=== PATIENT | male | born 1945 | race Caucasian/White ===

== ENCOUNTER 2018-11-05 05:26 | Inpatient (IN) | payer MEDICARE ==
[~2018-11-05] VITALS: Ht 170.2 cm; Wt 88.0 kg
[~2018-11-05 05:26] MED LIST: ASPI81EC PO; IBUP800 PO; MULVITMINF PO
[2018-11-05 05:58] LABS: PCO2 Arterial 27.2 mmHg (35-45); PO2 Arterial 58.7 mmHg (80-100); pH Blood Arterial 7.42 (7.35-7.45)
[2018-11-05 06:02] LABS: BASOPHILS ABSOLUTE AUTO 0.08 K/mm3 (0.00-0.23); BASOPHILS PERCENT AUTO 1 % (0-2); EOSINOPHILS PERCENT AUTO 2 % (0-6); Hematocrit 50.2 % (37.0-53.0); Hemoglobin 16.4 g/dL (13.5-17.5); IMMATURE GRAN ABSOLUTE AUTO 0.11 K/mm3 (0.00-0.10); IMMATURE GRAN PERCENT AUTO 1 % (0-1); LYMPHOCYTES ABSOLUTE AUTO 3.69 K/mm3 (0.84-5.20); LYMPHOCYTES PERCENT AUTO 22 % (21-46); MONOCYTES ABSOLUTE AUTO 0.89 K/mm3 (0.16-1.47); MONOCYTES PERCENT AUTO 5 % (4-13); Mean Corpuscular HGB 31.3 pg (26.0-34.0); Mean Corpuscular HGB Conc 32.7 g/dL (31.5-36.5); Mean Corpuscular Volume 96 fL (80-100); Mean Platelet Volume 11.4 fL (9.1-12.4); NEUTROPHILS ABSOLUTE AUTO 12.12 K/mm3 (1.96-9.15); NEUTROPHILS PERCENT AUTO 71 % (41-73); Platelet Count 162 K/mm3 (150-400); RDW Coefficient Variation 12.6 % (11.7-14.2); RDW Standard Deviation 44.6 fL (35.1-46.3); Red Blood Cell Count 5.24 M/mm3 (4.30-5.90); White Blood Cell Count 17.19 K/mm3 (4.00-11.30)
[2018-11-05 06:20] LABS: Influenza A Negative (NEGATIVE); Influenza B Negative (NEGATIVE)
[2018-11-05 06:22] LABS: Troponin I 0.196 ng/mL (0.000-0.040)
[2018-11-05 06:37] LABS: Albumin, Blood 3.6 g/dL (3.4-5.0); Albumin/Globulin Ratio 0.8 (0.8-1.8); Bilirubin, Total 0.7 mg/dL (0.1-1.0); Bun/Creatinine Ratio 12.7 (12.0-20.0); Calcium, Blood 8.7 mg/dL (8.5-10.1); Creatinine, Blood 1.5 mg/dL (0.60-1.20); Globulin, Blood 4.4 g/dL (2.2-4.0)
[2018-11-05 09:05] LABS: Mean Platelet Volume 11.6 fL (9.1-12.4); Platelet Count 170 K/mm3 (150-400)
[2018-11-05 09:22] LABS: International Normalized Ratio 1.04
[2018-11-05] MEDS ORDERED: Aspir 8181 MG PO (10:42)
[2018-11-05] MEDS ORDERED: Multivitamin1 EAC1 PO (10:43)
--- NOTE | 2018-11-05 11:37 | NUR ---
Stat Echocardiogram performed. Dr. Sampson called for stat overread.
--- NOTE | 2018-11-05 11:48 | NUR ---
ARRIVAL TO ICU 1010 - PT ARRIVES FROM ED TO ICU AT THIS TIME. DENIES PAIN. SOB WITH EXERTION. PT CURRENTLY WEARING 10-12 LITERS NRB MASK, SPO2 95%. AFTER ARRIVAL, O2 CHANGED TO HFNC 4L, 50% FIO2 AND PT TOLERATING. HEPARIN GTT INFUSION WITH BOLUS STARTED IMMEDIATELY AT ARRIVAL. LR MIV DISCONTINUED PER MD CASTRO. BP STABLE AND PT AFEBRILE. LUNG SOUNDS DIMISHED ON R SIDE. PT A/O X3, CALM AND COOPERATIVE. BEDSIDE ECHO DONE AND MD TERRY CALLED TO BEDSIDE AND ECHO REVIEWED. DAUGHTER CALLED AND UPDATED ON CURRENT TREATMENT PLAN, PT STATUS, AND PLAN TO TRANSFER [facility] FOR CADIOTHORACIC SURGERY. WILL CONTINUE TO MONITOR.
[2018-11-05 13:50] LABS: Source, Urine Catheter
[2018-11-05 13:58] LABS: Appearance, Urine Clear (Clear); Bilirubin, Urine Neg (Neg); Blood, Urine 3+ (Neg); Color, Urine Yellow (P-Yellow); Glucose Qualitative, Urine Neg (Neg); Ketones, Urine Neg (Neg); Leukocyte Esterase, Urine 1+ (Neg); Nitrite, Urine Neg (Neg); Protein, Urine 2+ (Neg); Urobilinogen, Urine NORM (Normal)
--- NOTE | 2018-11-05 14:45 | NUR ---
TRANSFER TO [facility]. 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 REPORT CALLED TO FINA AT [facility]. PEDAL PULSES PRESENT IN BILAT FEET. NO ERYTHEMA OR EDEMA TO LOWER LEGS. PT LEFT ICU AT 1440. FAMILY UPDATED ON PLAN.
[2018-11-05 15:07] LABS: White Blood Cells, Urine 0-2 /hpf (0-5)
[2018-11-05 15:08] LABS: Bacteria Few /hpf; Squamous Epithelial Cells Rare /hpf (Few)
== END 2018-11-05 14:10 | disposition short-term general hospital (02) | DRG 175 ==
LOC: ER 05:26 → ICUW 09:12
PROVIDERS: Emergency Medicine; Internal Medicine Pulmonary Disease; ADMIT Internal Medicine
DX: I26.02 Saddle embolus of pulmonary artery with acute cor pulmonale (principal); J96.01 Acute respiratory failure with hypoxia; R65.11 Systemic inflammatory response syndrome (SIRS) of non-infectious origin with acute organ dysfunction; N17.9 Acute kidney failure, unspecified; Z86.718 Personal history of other venous thrombosis and embolism; Z79.82 Long term (current) use of aspirin; Z87.891 Personal history of nicotine dependence
CPT/HCPCS: 36415; 36600; 71046; 71260; 80053; 81001; 82803; 83605; 83880; 84484; 85025; 85049; 85610; 85730; 87086; 87804; 93005; 93010; 93306; 93970; J0696; J1644; J7120; Q9967

== ENCOUNTER → 2019-11-14 | Outpatient (CLI) | payer MEDICARE ==
[~2019-11-14] MED LIST changes: +Aspir 8181 MG PO; +Multivitamin1 EAC1 PO
== END | disposition home or self-care (01) ==
LOC: PLD 11:07 → LAB SHORT 11:07
DX: L57.0 Actinic keratosis (principal); L81.4 Other melanin hyperpigmentation
CPT/HCPCS: 88305

== ENCOUNTER 2022-01-28 11:30 | Day surgery (SDC) | payer MEDICARE ==
[~2022-01-28] VITALS: Ht 170.2 cm; Wt 83.4 kg
[2022-01-28] MEDS ORDERED: ELIQUIS2.5 MG ×2 (11:52→11:53)
[2022-01-28] MEDS ORDERED: Vitamin C100 M1 (11:53)
[2022-01-28] MEDS ORDERED: EZET10 (11:53)
== END 2022-01-28 14:15 | disposition home or self-care (01) ==
LOC: ORSCSDS 11:30
PROVIDERS: Internal Medicine Gastroenterology
PROC: 0DBP8ZX Excision of Rectum, Via Natural or Artificial Opening Endoscopic, Diagnostic (ICD-10-PCS; principal; 2022-01-28 13:00)
DX: Z12.11 Encounter for screening for malignant neoplasm of colon (principal); Z86.010 Personal history of colon polyps; Z80.0 Family history of malignant neoplasm of digestive organs; Z83.71 Family history of colonic polyps; K62.1 Rectal polyp; K57.30 Diverticulosis of large intestine without perforation or abscess without bleeding; K64.8 Other hemorrhoids; K64.4 Residual hemorrhoidal skin tags; E78.5 Hyperlipidemia, unspecified; Z79.01 Long term (current) use of anticoagulants; Z79.899 Other long term (current) drug therapy
CPT/HCPCS: 88305; J2704; J7120